=== PATIENT | female | born 1995 | race Caucasian/White ===

== ENCOUNTER 2017-11-01 13:31 | Emergency (ER) | payer OTHER, SELFPAY ==
[2017-11-01 14:37] VITALS: BP 115/73; PULSE 90; RESP 20; TEMP 36.6; O2SAT 98; BMI 47.2
--- NOTE | 2017-11-01 15:09 | [facility].EDUTC ---
[facility] [place] Clinical Impression: Laryngitis Disposition: Home, Self-Care Condition on Discharge: Good Instructions: Laryngitis, DI for Laryngitis Additional Instructions: Drink plenty of fluids * Monitor Temp. Tylenol and/or Ibuprofen as needed. ER if fever is no less than 101 despite alternating Tylenol and Ibuprofen * Encourage fluids, water, Gatorade, powerade, pedialyte if infant/toddler/or child * Warm salt water gargles for throat irritation *Warm fluids *Sore throat lozenges *Sleep elevated *humidifier or vaporizer Lots of rest Increase fluids, water, Gatorade, powerade Follow up IMMEDIATELY for new or worsening of symptoms OR no noticeable improvement over the next 48-72 hours. 911 immediately for any life threatening symptoms such as chest pain or difficulty breathing Time of Disposition: 15:28 Medical Decision Making Vital Signs: 11/01/17 14:37 Temperature 97.9 F Temperature Source Oral Pulse Rate [Left Radial] 90 Respiratory Rate 20 Blood Pressure [Right Arm] 115/73 Blood Pressure Mean [Right Arm] 87 Blood Pressure Source [Right Arm] Automatic Cuff Blood Pressure Position [Right Arm] Sitting 02 Sat by Pulse Oximetry 98 Oxygen Delivery Method Room Air - Jamil Inquiry Pt receiving controlled substance: No Jamil was queried for this patient: No [facility] [place] - General Stated complaint: lost voice coughing up blood Mode of Arrival: Ambulatory Source of Information: Patient Limitations: No Limitations Description of Symptoms (Recalled from Triage Doc. by RN): LOST VOICE TUESDAY, WAS SEEN AT [facility] AND WAS PUT ON CLARITHRAMYCIN 500MG. HEENT Symptoms (Recalled from RN notes): Yes (LOST VOICE) Resp Symptoms (Recalled from RN notes): No Skin Symptoms (Recalled from RN notes): No MS Symptoms (Recalled from RN notes): No Functional Status (Recalled from RN notes): NA - History of Present Illness Provider Complaint: Patient state that she has been seen three times for this complaint States that she has been having cough for over a week and lost her voice State that she has coughed up some mucous but she is having sinus drainage too and not sure but thinks she is coughing up mucous with blood in that is draining from her nose Onset (ago): day(s) (7) Radiation: non-radiation Severity scale (1-10): 4 Relieving factors: none Exacerbating factors: none Associated symptoms: cough Treatments prior to arrival: other (prescribed Clarithromycin 500mg and been taking since Tuesday) - Related Data Allergies Allergy/AdvReac Type Severity Reaction Status Date / Time Penicillins [PENICILLINS] Allergy Intermediate I-HIVES Unverified 10/18/17 14:59 - Worker's Comp Is this a Worker's Comp case?: No Is this an [facility] Worker's Comp?: No Is this a [place] Worker's Comp?: No [facility] History Medical History: Denies:: Cancer, Diabetes Mellitus Type 1, Diabetes Mellitus Type 2, MRSA Amputation: No Fractures: No - *Social History Smoking Status: Never smoker Alcohol Intake: never - Psychiatric History Expresses thoughts of harming self/others: None Suicide Plan Description: No Plan - ENT Reports nasal congestion, Reports nasal discharge, Reports sore throat, Reports other Comments: Unable to speak has lost her voice - Respiratory Reports cough, Reports other Comments: State that she has coughed up blood tinged sputum at times but feels like it is coming from her nose Physical Exam - General General appearance: alert, in no apparent distress - Expanded ENT Exam Throat exam: Present: other Comment: Throat mildly red, irritated no exudate no bleeding or lesions - Neck Neck exam: Present: normal inspection, full ROM, trachea midline - Respiratory Respiratory exam: Present: normal lung sounds bilaterally. Absent: respiratory distress - Cardiovascular Cardiovascular exam: Present: regular rate, normal rhythm. Absent: JVD - Neurological Exam Neurological exam
--- NOTE | 2017-11-01 15:13 | ED_ITS ---
[facility] [place] Disposition Clinical Impression: Laryngitis Disposition: Home, Self-Care Condition on Discharge: Good Instructions: Laryngitis, DI for Laryngitis Additional Instructions: Drink plenty of fluids * Monitor Temp. Tylenol and/or Ibuprofen as needed. ER if fever is no less than 101 despite alternating Tylenol and Ibuprofen * Encourage fluids, water, Gatorade, powerade, pedialyte if infant/toddler/or child * Warm salt water gargles for throat irritation *Warm fluids *Sore throat lozenges *Sleep elevated *humidifier or vaporizer Lots of rest Increase fluids, water, Gatorade, powerade Follow up IMMEDIATELY for new or worsening of symptoms OR no noticeable improvement over the next 48-72 hours. 911 immediately for any life threatening symptoms such as chest pain or difficulty breathing Time of Disposition: 15:28 Medical Decision Making Vital Signs: 11/01/17 14:37 Temperature 97.9 F Temperature Source Oral Pulse Rate [Left Radial] 90 Respiratory Rate 20 Blood Pressure [Right Arm] 115/73 Blood Pressure Mean [Right Arm] 87 Blood Pressure Source [Right Arm] Automatic Cuff Blood Pressure Position [Right Arm] Sitting 02 Sat by Pulse Oximetry 98 Oxygen Delivery Method Room Air - Jamil Inquiry Pt receiving controlled substance: No Jamil was queried for this patient: No [facility] [place] HPI - General Stated complaint: lost voice coughing up blood Mode of Arrival: Ambulatory Source of Information: Patient Limitations: No Limitations Description of Symptoms (Recalled from Triage Doc. by RN): LOST VOICE TUESDAY, WAS SEEN AT [facility] AND WAS PUT ON CLARITHRAMYCIN 500MG. HEENT Symptoms (Recalled from RN notes): Yes (LOST VOICE) Resp Symptoms (Recalled from RN notes): No Skin Symptoms (Recalled from RN notes): No MS Symptoms (Recalled from RN notes): No Functional Status (Recalled from RN notes): NA - History of Present Illness Provider Complaint: Patient state that she has been seen three times for this complaint States that she has been having cough for over a week and lost her voice State that she has coughed up some mucous but she is having sinus drainage too and not sure but thinks she is coughing up mucous with blood in that is draining from her nose Onset (ago): day(s) (7) Radiation: non-radiation Severity scale (1-10): 4 Relieving factors: none Exacerbating factors: none Associated symptoms: cough Treatments prior to arrival: other (prescribed Clarithromycin 500mg and been taking since Tuesday) - Related Data Allergies Allergy/AdvReac Type Severity Reaction Status Date / Time Penicillins [PENICILLINS] Allergy Intermediate I-HIVES Unverified 10/18/17 14:59 - Worker's Comp Is this a Worker's Comp case?: No Is this an [facility] Worker's Comp?: No Is this a [place] Worker's Comp?: No [facility] History Medical History: Denies:: Cancer, Diabetes Mellitus Type 1, Diabetes Mellitus Type 2, MRSA Amputation: No Fractures: No - *Social History Smoking Status: Never smoker Alcohol Intake: never - Psychiatric History Expresses thoughts of harming self/others: None Suicide Plan Description: No Plan - ENT Reports nasal congestion, Reports nasal discharge, Reports sore throat, Reports other Comments: Unable to speak has lost her voice - Respiratory Reports cough, Reports other Comments: State that she has coughed up bloo
== END 2017-11-01 15:35 | disposition home or self-care (01) ==
PROVIDERS: Emergency Provider Nurse Practitioner; Family Provider Family Medicine
DX: J04.0 Acute laryngitis (principal)
CPT/HCPCS: 87430; 96372; 99201

== ENCOUNTER → 2021-12-08 16:15 | Outpatient (CLI) | payer OTHER, SELFPAY ==
--- NOTE | 2021-12-08 16:29 | XR_ITS ---
PROCEDURE INFORMATION: Exam: XR Chest Exam date and time: 12/08/2021 4:29 PM Age: 26 years old Clinical indication: Shortness of breath; Additional info: SOB TECHNIQUE: Imaging protocol: XR of the chest. Views: 4 or more views. COMPARISON: No relevant prior studies available. FINDINGS: Lungs: Suboptimal evaluation of the lung bases. No consolidation. Pleural spaces: Unremarkable. No pleural effusion. No pneumothorax. Heart/Mediastinum: Unremarkable. No cardiomegaly. Bones/joints: No acute findings. IMPRESSION: No acute findings.
[2021-12-08 17:26] LABS: D-Dimer 0.43 ug/mL (0.0-0.5); Hemoglobin A1C 9.2 % (4.0-6.0)
[2021-12-08 17:34] LABS: Basophils # 0.2 K/mm3 (0-0.2); Basophils % 1.2 % (0.1-2.0); Eosinophils # 0.2 K/mm3 (0.0-0.4); Eosinophils % 1.3 % (0.1-12.0); Hemoglobin 14.3 g/dL (12.2-16.2); Lymphocytes # 2.9 K/mm3 (0.7-4.5); Lymphocytes % 17.6 % (10-50); Mean Corpuscular HGB Conc 31.8 g/dL (31.8-35.4); Mean Corpuscular Volume 94.2 fl (81-99); Mean Platelet Volume 9.2 fl (7.4-10.4); Monocytes # 0.7 K/mm3 (0.1-1.0); Monocytes % 4.2 % (1.7-9.3); Neutrophils # 12.4 K/mm3 (1.8-7.8); Neutrophils % 75.8 % (37.0-80.0); Platelet Count 396 K/mm3 (142-424); Red Blood Count 4.78 M/mm3 (4.20-5.40); Red Cell Distribution Width 13.7 % (11.5-17.5); White Blood Count 16.3 K/mm3 (4.8-10.8)
[2021-12-08 17:39] LABS: MANUAL DIFFERENTIAL MANUAL DIFFERENTIAL (MANUAL DIFF)
[2021-12-08 17:50] LABS: Alanine Aminotransferase 40 U/L (12-78); Albumin Level 4.1 g/dl (3.5-5.0); Albumin/Globulin Ratio 1.2 (1.1-1.8); Alkaline Phosphatase 105 U/L (38-126); Anion Gap 12.5 mEq/L (5-15); Aspartate Amino Transferase 41 U/L (14-36); Bilirubin,Total 0.8 mg/dl (0.2-1.3); Blood Urea Nitrogen 11 mg/dl (7-17); Calcium 9.9 mg/dl (8.4-10.2); Carbon Dioxide 30 mmol/L (22.0-30.0); Chloride 99 mmol/L (98-107); Estimated Glomerular Filt Rate 122 ml/min (>60); GFR (African American) 147 ML/MIN (>60); Globulin 3.4 g/dL (1.3-3.2); Glucose 211 mg/dl (74-100); Potassium 4.5 mmoL/L (3.5-5.1); Sodium 137 mmol/L (136-145); Total Protein,Serum 7.5 g/dl (6.3-8.2)
[2021-12-08 17:56] LABS: C-Reactive Protein 59.7 mg/L (0-4)
[2021-12-08 18:07] LABS: Creatine Kinase MB < 0.2 ng/ml (0.0-2.03); NT Pro Brain Natriuretic Pep. < 11.1 pg/mL (0-125); Troponin I < 0.01 ng/ml (0.00-0.034)
[2021-12-08 18:08] LABS: T4 (Thyroxine) 12.9 ug/dl (5.53-11.0)
[2021-12-08 18:19] LABS: HCG,Quantitative < 2 mIU/ml (0-5.42)
[2021-12-08 18:22] LABS: Thyroid Stimulating Hormone 2.81 uIU/mL (0.465-4.68)
[2021-12-08 19:09] LABS: Anisocytosis 1+; Hypochromasia 1+; Lymphocytes % 13 % (10-50); Monocytes % 9 % (2-9); Neutrophils % 78 % (42-76); Platelet Estimate Normal; Stomatocytes 1+; Total Cells Counted 100
[2021-12-08 19:34] LABS: Erythrocyte Sedimentation Rate 20 mm/hr (0-20)
[2021-12-10 08:31] LABS: Triiodothyronine (T3) Free 3.7 pg/mL (2.0-4.4)
== END ==
PROVIDERS: PCP Family Medicine; Visit Provider Family Medicine
DX: R06.02 Shortness of breath (principal); R07.9 Chest pain, unspecified
CPT/HCPCS: 36415; 71045; 80053; 82553; 83036; 83880; 84436; 84443; 84481; 84484; 84702; 85007; 85025; 85378; 85651; 86140